=== PATIENT | male | born 1960 | race African-American/Black ===

== ENCOUNTER 2024-08-24 10:32 | Inpatient (IN) | payer OTHER ==
[2024-08-24 11:12] VITALS: BMI 29.8
[2024-08-24] MEDS ORDERED: BISMUTH SUBSALICYLATE 524 MG/30 ML PO PRN (12:49)
[2024-08-24] MEDS ORDERED: LOPERAMIDE HCL 2 MG CAPSULE PO PRN (12:49)
[2024-08-24] MEDS ORDERED: DICYCLOMINE HCL 10 MG CAPSULE PO PRN (12:49)
[2024-08-24] MEDS ORDERED: BENZONATATE 200 MG CAPSULE PO PRN (12:49)
[2024-08-24] MEDS ORDERED: NALOXONE (NARCAN) HCL 4 MG/0.1 ML SPRAY NS PRN (12:49)
[2024-08-24] MEDS ORDERED: MAG HYDROX/AL HYDROX/SIMETH 30 ML UNIT-DOSE CUP PO PRN (12:49)
[2024-08-24] MEDS ORDERED: MAGNESIUM HYDROX 2400MG/30ML ORAL SUSPENSION 30 ML CUP PO PRN (12:49)
[2024-08-24] MEDS ORDERED: POLYETHYLENE GLYCOL (HEALTHYLAX) 3350 17 GM PACKET PO PRN (12:49)
[2024-08-24] MEDS ORDERED: NALOXONE HCL 0.4 MG/ML VIAL IM PRN (12:49)
[2024-08-24] MEDS ORDERED: BENZOCAINE/MENTHOL (CHLORASEPTIC ) LOZENGE MM PRN (12:49)
[2024-08-24] MEDS ORDERED: guaiFENesin 600 MG TABLET.ER (FP) PO PRN (12:49)
[2024-08-24] MEDS ORDERED: ONDANSETRON *ODT* 4 MG TABLET SL PRN (12:49)
[2024-08-24] MEDS: ISOSORBIDE MONONITRATE 30 MG TAB.SR.24H (FP) PO SCH (14:31)
[2024-08-24] MEDS: NICOTINE 7 MG/24 HOURS TOPICAL PATCH TD SCH (14:31)
[2024-08-24] MEDS: PRENATAL VITAMINS W/ FOLIC ACID TABLET (FP) PO SCH (14:31)
[2024-08-24] MEDS: LOSARTAN POTASSIUM 50 MG TABLET PO SCH (14:32)
[2024-08-24] MEDS: IBUPROFEN 600 MG TABLET (FP) PO PRN (15:51)
[2024-08-24] MEDS ORDERED: LOSARTAN POTASSIUM 50 MG TABLET PO SCH (16:30)
[2024-08-24] MEDS: LOSARTAN POTASSIUM 50 MG TABLET PO ONE (17:17)
[2024-08-24] MEDS: LORazepam 2 MG TABLET PO SCH (17:18)
[2024-08-24] MEDS: ISOSORBIDE MONONITRATE 30 MG TAB.SR.24H (FP) PO ONE (18:02)
[2024-08-24] MEDS: MONTELUKAST NA 10 MG TABLET PO SCH (22:09)
[2024-08-24] MEDS: THIAMINE 100 MG TABLET PO SCH (22:09)
[2024-08-24] MEDS: ATORVASTATIN CA 20 MG TABLET (FP) PO SCH (22:09)
[2024-08-24] MEDS: MELATONIN 5 MG TABLETS PO SCH (22:09)
[2024-08-24] MEDS: ALBUTEROL SO4 HFA INHALER IH PRN (22:11)
[2024-08-25] MEDS: FLUTICASONE PROP 0.05% 16 GM NASAL SPRAY NS SCH (10:58)
[2024-08-25] MEDS: SERTRALINE HCL 50 MG TABLET (FP) PO SCH (12:23)
[2024-08-25] MEDS: buPROPion HCL 75 MG TABLET PO SCH (12:23)
[2024-08-25 14:41] LABS: HEMATOCRIT 38.5 % (35.4-49); HEMOGLOBIN 12.2 GM/dL (11.7-16.9); MCH 28.2 pg (25.7-33.7); MCHC 31.8 g/dl (32.0-35.9); MEAN CELL VOLUME 88.7 fl (80-96); PLATELET COUNT 247 10^3/uL (134-434); RBC 4.34 M/mm3 (4.00-5.60); RDW 14.7 % (11.9-15.9); WHITE BLOOD COUNT 11.3 K/mm3 (4.0-10.0)
[2024-08-25 14:44] LABS: CHLORIDE 104 mmol/L (98-107); POTASSIUM 3.5 mmol/L (3.5-5.1); SODIUM 143 mmol/L (136-145)
[2024-08-25 15:02] LABS: ALBUMIN 3.6 g/dl (3.4-5.0); ANION GAP 8 mmol/L (4-13); BLOOD UREA NITROGEN 15.9 mg/dL (7-18); CALCIUM 9.6 mg/dL (8.5-10.1); CO2 30 mmol/L (21-32); GLUCOSE,RANDOM 142 mg/dL (74-106)
[2024-08-25 15:04] LABS: CREATININE 1.5 mg/dL (0.55-1.3); SGPT/ALT 46 U/L (13-61)
[2024-08-25 15:06] LABS: BILIRUBIN,TOTAL 0.7 mg/dL (0.2-1); SGOT/AST 41 U/L (15-37); TOT PROT 7.6 g/dl (6.4-8.2)
[2024-08-25 15:07] LABS: ALK PHOS 95 U/L (45-117)
[2024-08-25] MEDS: BUDESONIDE/FORMETEROL FUMARATE 160/4.5 mcg INHALER IH SCH (15:36)
[2024-08-25] MEDS: hydrOXYzine PAMOATE 25 MG CAPSULE (FP) PO PRN (17:29)
[2024-08-25] MEDS: METHOCARBAMOL 500 MG TABLET PO PRN (17:29)
[2024-08-25] MEDS: BACITRACIN 0.9 GM PACKET TP SCH (22:38)
[2024-08-25] MEDS: cloNIDine HCL 0.1 MG TABLET PO ONE (22:44)
[2024-08-26] MEDS: LORazepam 1 MG TABLET PO SCH (05:00)
[2024-08-26] MEDS: LORazepam 1 MG TABLET PO PRN (06:04)
[2024-08-26] MEDS: METOPROLOL TARTRATE 25 MG TABLET (FP) PO ONE (22:47)
[2024-08-27] MEDS ORDERED: LORazepam 0.5 MG TABLET PO PRN
[2024-08-27] MEDS: LORazepam 0.5 MG TABLET PO SCH (06:11)
[2024-08-27] MEDS ORDERED: LACTULOSE 20 GM/30 ML UDC (FOR ORAL USE ONLY) PO PRN (10:05)
[2024-08-27] MEDS: ACETAMINOPHEN 325 MG TABLET (FP) PO PRN (11:29)
[2024-08-27] MEDS: HYDROCHLOROTHIAZIDE 25 MG TABLET (FP) PO SCH (11:31)
[2024-08-27 16:28] VITALS: RESP 16
[2024-08-27] MEDS: IBUPROFEN 400 MG TABLET (FP) PO PRN (16:32)
[2024-08-28] MEDS: LORazepam 0.5 MG TABLET PO ONE (05:50)
[2024-08-28 09:14] VITALS: BP 151/56; PULSE 81; TEMP 98.1
== END 2024-08-28 10:45 | disposition home or self-care (01) | DRG 775 ==
LOC: YASAS 10:32 → Y6N 13:46
PROVIDERS: ADMIT Allergy & Immunology; ATTEND Surgery
PROC: HZ2ZZZZ Detoxification Services for Substance Abuse Treatment (ICD-10-PCS; principal; 2024-08-24)
DX: F10.230 Alcohol dependence with withdrawal, uncomplicated (principal); F17.210 Nicotine dependence, cigarettes, uncomplicated; F10.282 Alcohol dependence with alcohol-induced sleep disorder; F32.9 Major depressive disorder, single episode, unspecified; E78.5 Hyperlipidemia, unspecified; I10 Essential (primary) hypertension; J45.909 Unspecified asthma, uncomplicated; M54.50 Low back pain, unspecified; G89.29 Other chronic pain; I25.2 Old myocardial infarction; Z62.810 Personal history of physical and sexual abuse in childhood; Z88.0 Allergy status to penicillin
CPT/HCPCS: 36415; 80053; 80305; 80307; 82140; 85027; 86780; 93005; 93010